=== PATIENT | male | born 2000 | race Caucasian/White ===

== ENCOUNTER 2020-12-18 16:46 | Emergency (ER) | payer BC, SELFPAY ==
[2020-12-18] VITALS (7 sets, daily range): BP systolic 102–146; BP diastolic 50–79; PULSE 60–118; RESP 12–18; TEMP 36.3–37.2; O2SAT 97–100
[2020-12-18 17:09] LABS: Basophils Absolute Auto 0.1 K/mm3 (0.0-0.1); Basophils Percent Auto 0.7 % (0.2-1.2); Eosinophils Absolute Auto 0.5 K/mm3 (0-0.3); Eosinophils Percent Auto 6.6 % (0-4.4); Hematocrit 47.4 % (42.0-52.0); Hemoglobin 16.3 g/dL (14.0-18.0); Immature Granulocyte Absolute 0.01 K/mm3 (0.00-0.031); Immature Granulocyte Percent A 0.1 % (0-0.5); Lymphocytes Absolute Auto 3.28 K/mm3 (0.9-3.2); Lymphocytes Percent Auto 39.9 % (18.3-44.2); Mean Corpuscular HGB Conc 34.4 g/dl (32-36); Mean Corpuscular Volume 92.9 fl (80-100); Mean Platelet Volume 9.6 fl (7.4-10.4); Monocytes Absolute Auto 0.6 K/mm3 (0.1-0.6); Monocytes Percent Auto 7.5 % (2.6-8.5); Neutrophils Absolute Auto 3.7 K/mm3 (1.3-6.7); Neutrophils Percent Auto 45.2 % (45.5-73.1); Platelet Count Result 233 k/mm3 (150-375); Red Cell Distribution Width 12.4 % (11.5-14.5); White Blood Count 8.2 K/mm3 (4.5-10.0)
[2020-12-18 17:12] LABS: Add Urine Microscopic? NO; Appearance Urine Clear (Clear); Bilirubin Urine Negative (Negative); Blood Urine Negative (Negative); Color Urine Yellow (Yellow); Glucose Urine UA Negative (Negative); Ketones Urine Negative (Negative); Leukocyte Esterase Ur Negative LEU/UL (Negative); Nitrate Urine Negative (Negative); Protein Urine Negative (Negative); Specific Grav Ur 1.013 (1.001-1.035); Urobilinogen Urine Negative mg/dL (<2.0)
[2020-12-18 17:22] LABS: Alanine Aminotransferase 19 U/L (4-50); Albumin Level 4.8 g/dL (3.5-5.1); Alkaline Phosphatase 55 U/L (38-126); Anion Gap 12 mmol/L (8-16); Aspartate Amino Transferase 30 U/L (17-59); Bilirubin,Total 0.4 mg/dL (0.2-1.3); Blood Urea Nitrogen 18 mg/dL (9-20); Calcium 9.6 mg/dL (8.4-10.2); Carbon Dioxide 26 mmol/L (22-30); Chloride 101 mmol/L (98-107); Estimated CRCL calculation 124 ml/min; Estimated Glomerular Filt Rate > 60; Glucose 128 mg/dL (65-110); Lipase 139 U/L (23-300); Potassium 3.7 mmol/L (3.4-5.0); Sodium 139 mmol/L (137-145)
--- NOTE | 2020-12-18 19:36 | PC.NURSE ---
Pt reports came in bc he ate some 'bad chicken' earlier today and had to call in to work. reports was still nauseous when he initially arrived in ED, but now feels much better . Denies any other symptoms at present, and reports he doesn't want any further testing or treatment but would like a note for work. skin pwd. a/o x 4.
--- NOTE | 2020-12-18 20:33 | ED.NAVMDI ---
HPI - Nausea/Vomiting/Diarrhea General Chief complaint: Nausea/Vomiting/Diarrhea Stated complaint: nausea, diarrhea, needs note for work Time Seen by Provider: 12/18/20 19:32 Source: patient Mode of arrival: ambulatory Limitations: no limitations History of Present Illness HPI Narrative: 20-year-old male Basically healthy Patient had a considerable amount of profuse and simultaneous vomiting and diarrhea which caused him to miss work today but stopped about 4-5 hours ago This followed the ingestion of some approximately 4-day-old leftover chicken No fever, no abdominal pain, no blood in the stool or the vomit No other ill contacts or risk factors Related Data Allergies Allergy/AdvReac Type Severity Reaction Status Date / Time No Known Allergies Allergy Verified 12/18/20 19:24 Review of Systems Constitutional: Constitutional: Denies chills and Denies fever(s) Cardiovascular: Cardiovascular: Denies chest pain Respiratory: Respiratory: Denies cough and Denies dyspnea Gastrointestinal: Gastrointestinal: Denies abdominal pain, Reports diarrhea, Reports nausea and Reports vomiting Genitourinary: Genitourinary: Denies dysuria [facility] Family History Family History Father Family history of coronary artery disease Mother Family history of malignant neoplasm of breast in first degree relative Other Family history of cardiovascular disease Social History Social History Smoking status: Current every day smoker Alcohol intake: never Exam Const: General: healthy appearing, no acute distress and alert Orientation/consciousness: patient oriented x3 HENMT: Head: normal to inspection Eyes: EOM: EOMs intact bilaterally Resp: Effort & Inspection: normal respiratory effort and not labored GI: GI Palp: Yes Soft to palpation, No Tenderness to palpation present (GI), No Guarding due to palpation present (GI) and No Rebound tenderness present Neuro: General: patient oriented x3 Speech: normal speech Course Vital Signs Vital signs: Vital Signs Temperature 37.2 C 12/18/20 16:48 Pulse Rate 118 H 12/18/20 16:48 Respiratory Rate 16 12/18/20 16:48 Blood Pressure 146/79 H 12/18/20 16:48 Pulse Oximetry 100 12/18/20 16:48 Temperature 36.3 C L 12/18/20 19:22 Pulse Rate 89 12/18/20 19:34 Respiratory Rate 12 12/18/20 19:34 Blood Pressure 115/50 L 12/18/20 19:34 Pulse Oximetry 97 12/18/20 19:34 MDM - Nausea/Vomiting/Diarrhea Lab Data Result diagrams: 12/18/20 16:53 12/18/20 16:53 Labs: Lab Results 12/18/20 12/18/20 12/18/20 Range/Units 16:53 16:53 16:57 WBC 8.2 (4.5-10.0) K/mm3 RBC 5.10 (4.6-6.20) M/mm3 Hgb 16.3 (14.0-18.0) g/dL Hct 47.4 (42.0-52.0) % MCV 92.9 (80-100) fl MCH 32.0 (26-34) pg MCHC 34.4 (32-36) g/dl RDW 12.4 (11.5-14.5) % Plt Count 233 (150-375) k/mm3 MPV 9.6 (7.4-10.4) fl Immature Gran % (Auto) 0.1 (0-0.5) % Neut % (Auto) 45.2 L (45.5-73.1) % Lymph % (Auto) 39.9 (18.3-44.2) % Hardeman % (Auto) 7.5 (2.6-8.5) % Eos % (Auto) 6.6 H (0-4.4) % Baso % (Auto) 0.7 (0.2-1.2) % Lymph # (Auto) 3.28 H (0.9-3.2) K/mm3 Hardeman # (Auto) 0.6 (0.1-0.6) K/mm3 Eos # (Auto) 0.5 H (0-0.3) K/mm3 Baso # (Auto) 0.1 (0.0-0.1) K/mm3 Abs Immat Gran (auto) 0.01 (0.00-0.031) K/mm3 Absolute Neuts (auto) 3.7 (1.3-6.7) K/mm3 Absolute Nucleated RBC 0.0 (0.0-0.012) K/mm3 Nucleated RBC % 0.0 (0.0-0.2) % Sodium 139 (137-145) mmol/L Potassium 3.7 (3.4-5.0) mmol/L Chloride 101 (98-107) mmol/L Carbon Dioxide 26 (22-30) mmol/L Anion Gap 12 (8-16) mmol/L BUN 18 (9-20) mg/dL Creatinine 0.90 (0.7-1.3) mg/dL Estim Creat Clear Calc 124 ml/min Estimated GFR > 60 (59 - ) Glucose 128 H (65-110) mg/dL C
--- NOTE | 2020-12-18 20:34 | PC.NURSE ---
Pt provided with nicolette mist by ED MD Shirley. Pt denies N/V/D or any other symptoms after consuming. ED updated.
== END 2020-12-18 21:02 | disposition home or self-care (01) ==
PROVIDERS: Emergency Medicine; Emergency Provider Emergency Medicine; PCP Family Medicine
DX: K52.9 Noninfective gastroenteritis and colitis, unspecified (principal); F17.200 Nicotine dependence, unspecified, uncomplicated
CPT/HCPCS: 36415; 80053; 81003; 83690; 85025; 99283

== ENCOUNTER 2022-07-23 11:55 | Emergency (ER) | payer BC, SELFPAY ==
--- NOTE | ~2022-07-23 | XR_ITS ---
EXAMINATION: XR hand RT min 3V INDICATION: Right hand pain, initial encounter TECHNIQUE: Three views of the right hand are obtained COMPARISON: None available FINDINGS: There is an acute, traumatic, closed,, mildly comminuted, transverse shaft fracture of the fifth metacarpal. There are 50 degrees of palmar angulation at the fracture site. No additional fract ure is identified. The joint spaces are normal. Soft tissue swelling is seen near the fracture. IMPRESSION: 1. Acute fifth metacarpal fracture with palmar angulation. Reviewed, dictated and finalized at location A.
[2022-07-23 12:02] VITALS: BP 131/84; PULSE 95; RESP 16; TEMP 37.3; O2SAT 99
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
== END 2022-07-23 13:12 | disposition home or self-care (01) ==
PROVIDERS: Emergency Provider Nurse Practitioner Family; PCP Family Medicine
DX: S62.326A Displaced fracture of shaft of fifth metacarpal bone, right hand, initial encounter for closed fracture (principal); Y04.2XXA Assault by strike against or bumped into by another person, initial encounter; F17.200 Nicotine dependence, unspecified, uncomplicated
CPT/HCPCS: 29125; 73130; 99214; A4565; G0463

== ENCOUNTER 2022-08-10 00:58 | Day surgery (SDC) | payer BC, SELFPAY ==
[2022-08-03 15:21] VITALS: BMI 23.7
--- NOTE | 2022-08-03 15:25 | PC.NURSE ---
Report to the Outpatient Waiting Room, entrance under the green pavilion located off [facility], at time 0730 on date 08/10/22. Planned Procedure Time: 0930. Time changes happen often and if your time is changed the preop area will call you the afternoon before. - You and your visitor will be asked to self-screen and do not enter if you have any COVID symptoms. - A mask is optional within the hospital at this time. Patients may have clear liquids (water, carbonated beverages, clear teas, apple juice) until 3 hours prior to surgery with a maximum of 20 ounces. - No food from midnight until time of surgery Take the following medications with a SIP of water the morning of surgery: PAIN PILL IF NEEDED DO NOT STOP ANY OF YOUR OTHER PRESCRIPTION MEDICATIONS PRIOR TO SURGERY EXCEPT THE FOLLOWING Medications to discontinue per physician: N/A Date to take last dose: N/A Please no make-up, nail maltese, hairspray, perfume, deodorant, or body powder the day of surgery. No jewelry (including any body piercings) or valuables the day of surgery, leave them at home. Please take a shower or bath the night before, or the morning of, surgery with an antibacterial soap. Wear comfortable, loose fitting clothing. - Jewelry must be removed prior to entering the operating room. Rings and piercings that are not removed may be cut off. - The hospital will not accept responsibility for valuables. - Please leave all valuables, including medications, at home the day of surgery. If you are going home after surgery, a licensed regional dedicated truck driver must drive you home. - NO public transportation without another adult if you receive anesthesia. - We recommend that an adult stay with you for 24 hours following discharge. - We also recommend that you do not drive, make important decision, drink alcoholic beverages, or take any drugs that were not prescribed by your health care provider for at least 24 hours after your discharge time. Follow any additional instructions given to you from your surgeon. If you or anyone in your household have experienced Covid symptoms in the past week, please notify your surgeon or the nurse liaison at the phone number below for possible testing. Telephone instructions given to BILL MORSE and asked if any additional questions and then verbalized understanding. Patient advised to call surgeon office or pre surgery nurse liaison [phone] if any additional questions.
[2022-08-10] VITALS (8 sets, daily range): BP systolic 110–141; BP diastolic 59–99; PULSE 53–90; RESP 12–20; TEMP 36.1–36.8; O2SAT 98–100
--- NOTE | ~2022-08-10 | XR_ITS ---
EXAMINATION: XR surgery orthopedic DATE: 08/10/2022 12:50 INDICATION: Right fifth metacarpal fracture. TECHNIQUE: 2 intraoperative spot fluoroscopic views of right hand were obtained. I was not present. F luoroscopy exposure time was 261 seconds. COMPARISON: Right hand radiographs 07/23/2022 FINDINGS: There is a transverse fracture of diaphysis of fifth metacarpal. The distal fracture fragme nt demonstrates 2 mm radial displacement and 26 degrees palmar angulation. Fixation is seen with a pi n. IMPRESSION: 1. Transverse fracture of diaphysis of fifth metacarpal status post pinning. Reviewed, dictated and finalized at location A.
--- NOTE | 2022-08-10 07:14 | WPDHPUPDATE1 ---
History and Physical Update Update Date/Time: 08/10/22 07:14 History and Physical has been reviewed, including an updated exam of the patient. There are NO changes in the patient's condition. Risks, benefits, and alternatives have been discussed and questions answered. Patient agrees to proceed with procedure.
[2022-08-10] MEDS: ACETAMINOPHEN 500 MG TABLET 1000 MG PO (07:44)
[2022-08-10] MEDS: LACTATED RINGERS 1,000 ML 30 ML IV CONT ×2 (08:16→12:55)
--- NOTE | 2022-08-10 09:35 | SUR.PREOP ---
0930-pt and mom aware surgeon delays self minimum of 30 minutes.
--- NOTE | 2022-08-10 09:48 | P.PNAN_ITS ---
Anes - Initial Pre Proc Eval Procedure: Operation Date: 08/10/22 09:30 Proposed Procedures p Closed or Possibly Open Reduction Internal Fixation Intramedullary Pin Right Fifth Metacarpal Hand Fracture - Del Glil MD Date/Time: 08/10/22 09:48 Surgeon: Del Gill MD Pre Op Diagnosis: clsd displac 1.6 midshaft fract. Rt 5th metacarpal Patient Data Age: 21 Gender: M Height: 1.88 m Weight: 87.6 kg Last Vital Signs Temp 98.3 F 08/10/22 07:46 Pulse 84 08/10/22 07:46 Resp 20 08/10/22 07:46 BP 130/99 H 08/10/22 07:46 Pulse Ox 100 08/10/22 07:46 O2 Del Method Room Air 08/10/22 07:46 Allergies Allergy/AdvReac Type Severity Reaction Status Date / Time No Known Allergies Allergy Verified 08/10/22 07:42 Home Medications Medication Instructions Recorded Confirmed Type hydrocodone 5 mg-acetaminophen 325 1 tablet PO Q8H PRN pain #12 tabs 07/23/22 08/10/22 Rx mg tablet Patient hx anesthesia problems: none Family hx anesthesia problems: none Results Review: All pre-operative results and documents have been reviewed as part of the pre- operative evaluation. [facility] Family History Family History Father Family history of coronary artery disease Mother Family history of malignant neoplasm of breast in first degree relative Other Family history of cardiovascular disease Social History Social History Years smoked: 4 Smoking status: Current every day smoker Tobacco type: cigarettes Alcohol intake: current Drinks per week: 4 Substance use: current Substance use type: marijuana Living arrangements: with family Gender identity (if verbalized by the patient): Male Spiritual care concerns: No Anes - Eval Final PreProcedure Day of Procedure 08/10/22 09:48 Patient weight: normal Heart: regular rate and rhythm Lungs: clear to auscultation Airway: Mallampati scale class II Neurological: alert and oriented Last oral intake: >/= 8 hours ASA classification: II Emergent: no Anesthetic plan: proceed Anesthesia type and monitoring: general LMA and standard monitoring Results Review: All pre-operative results and documents have been reviewed as part of the pre- operative evaluation. Informed Consent: The patient's anesthetic plan and its attendant risks and benefits were discussed with the patient/family/POA. Questions were solicited and answers provided to the satisfaction of the patient/family/POA.
[2022-08-10] MEDS: ceFAZolin 2 GM/D5W 50 ML 2 GM/50 ML BAG IVPB (11:14)
[2022-08-10] MEDS: LIDO 1%/EPINEPHRINE 1:100,000 20 ML VIAL 4 ML INFILTRATE (11:44)
--- NOTE | 2022-08-10 12:56 | W.PM.PROC2 ---
Procedure Note - Detailed Date of Procedure 08/10/22 Pre-op Diagnosis clsd displac 1.6 midshaft fract. Rt 5th metacarpal Post-op Diagnosis Other (Closed displaced fracture of the right 5th metacarpal shaft) Procedure Performed Closed reduction of right 5th metacarpal with intramedullary doe fixation Surgeon Del Gill MD Location And Measurement Technician [facility] Anesthesia General Indications Patient needs to keep working at his job Description of Procedure The right 5th digit was marked at the tip of the finger as the patient waited in the holding area with his bandage on. He was taken to the operating room and placed supine on the operating table. The dressing was removed. The patient was given IV sedation with LMA believe the right upper extremity was prepped and draped in usual fashion. The access site was identified using a 25 gauge needle and the C-arm. This area was infiltrated with 1% lidocaine with epinephrine along with the actual fracture site. The extremity was exsanguinated and the tourniquet inflated to 250 mmHg. A 1 in incision was made over the base of the 5th metacarpal blunt dissection revealed the extensor comitantes tendon. An access site was chosen near the base of the 5th metacarpal. The 2 mm hole was drilled in the cortex at an angle of 45?. A 0.062 in C-wire was chosen for fixation. The sharp tip was cut from 1 end. The distal 1-1/2 cm were bent about 20? . About 4 cm distal to the anticipated intramedullary l length of the pin, a 90 degree bend was made. The blunt end of the pin was inserted into the cortical fenestration. This was advanced distally with pushing twisting and tapping with a mallet the fracture was reduced under imaging. The pin was advanced into the middle of the head of the metacarpal, at that point despite rotation we were not able to advance it further. This seemed to be adequate. Compression was applied to the fracture and good reduction was obtained. The proximal end the pin was cut short and laid into the soft tissue to prevent trauma to the extensor tendons or the skin. The skin was closed with interrupted 5 0 nylon. The tourniquet was released. Soft bulky bandage was applied. He was discharged from the operating room stable condition. He had been given 2 g Ancef preop. The tourniquet time was 52 minutes. He is discharged home without prescriptions. Estimated Blood Loss 0 Tourniquet Time 52 Drains No Packing No Pathology None sent Complications No immediate complications Condition Stable Disposition Same day
[2022-08-10] MEDS: oxyCODONE HCL (*CRX) 5 MG TAB IR PO (13:51)
[2022-08-10] MEDS: ONDANSETRON INJ 4 MG/2 ML VIAL IV PUSH (13:51)
== END 2022-08-10 15:15 | disposition home or self-care (01) ==
PROVIDERS: PCP Family Medicine; Visit Provider Plastic Surgery
PROC: (CPT 26615; principal; 2022-08-10 09:30)
DX: S62.326A Displaced fracture of shaft of fifth metacarpal bone, right hand, initial encounter for closed fracture (principal); Y04.2XXA Assault by strike against or bumped into by another person, initial encounter
CPT/HCPCS: 26608; 99199; A9270; C1713; J0690; J1100; J1170; J2250; J2405; J2704; J3010; J7120

== ENCOUNTER 2022-09-28 01:13 | Day surgery (SDC) | payer BC, SELFPAY ==
--- NOTE | 2022-09-21 15:11 | PC.NURSE ---
Report to the Outpatient Waiting Room, entrance under the green pavilion located off [facility], at time 0600_ on date _09/28/22_. Planned Procedure Time: _0730__. Time changes happen often and if your time is changed the preop area will call you the afternoon before. - You and your visitor will be asked to self-screen and do not enter if you have any COVID symptoms. - A mask is optional within the hospital at this time. Patients may have clear liquids (water, carbonated beverages, clear teas, apple juice) until 3 hours prior to surgery with a maximum of 20 ounces. - No food from midnight until time of surgery - Infants may have breast milk until 4 hours before surgery, infant formula 6 hours prior to surgery. - Children will be allowed to drink immediately following surgery. If applicable, please bring a bottle or sippy cup to assist with drinking. Juice, water, soda, and popsicles are readily available. For infants on formula, please bring formula the day of surgery. Pacifiers are allowed. Take the following medications with a SIP of water the morning of surgery: PAIN MEDICATION IF NEEDED DO NOT STOP ANY OF YOUR OTHER PRESCRIPTION MEDICATIONS PRIOR TO SURGERY ?EXCEPT THE FOLLOWING Medications to discontinue per physician NONE Date to take last dose Please no make-up, nail mauritian, hairspray, perfume, deodorant, or body powder the day of surgery. No jewelry (including any body piercings) or valuables the day of surgery, leave them at home. Please take a shower or bath the night before, or the morning of, surgery with an antibacterial soap. Wear comfortable, loose fitting clothing. Children are encouraged to wear pajamas. - Jewelry must be removed prior to entering the operating room. Rings and piercings that are not removed may be cut off. - The hospital will not accept responsibility for valuables. - Please leave all valuables, including medications, at home the day of surgery. If you are going home after surgery, a licensed tow driver must drive you home. - NO public transportation without another adult if you receive anesthesia. - We recommend that an adult stay with you for 24 hours following discharge. - We also recommend that you do not drive, make important decision, drink alcoholic beverages, or take any drugs that were not prescribed by your health care provider for at least 24 hours after your discharge time. For Pediatric surgeries, we recommend two adults accompany the child home. Follow any additional instructions given to you from your surgeon. If you or anyone in your household have experienced Covid symptoms in the past week, please notify your surgeon or the nurse liaison at the phone number below for possible testing. Telephone instructions given to _PATIENT_and asked if any additional questions and then verbalized understanding. Patient advised to call surgeon office or pre surgery nurse liaison [phone] if any additional questions.
--- NOTE | ~2022-09-28 | XR_ITS ---
EXAMINATION: XR surgery orthopedic DATE: 09/28/2022 08:02 INDICATION: Removal of fixation pin of the right fifth metacarpal TECHNIQUE: 2 fluoroscopic images of the right hand centered at the metacarpals were obtained during p rocedure performed by Dr. Gill. Radiologist was not present for the imaging or procedure. The amount of fluoroscopy time used during this procedure was 0.4 minutes. COMPARISON: 08/10/2022 FINDINGS: No change in a proximal to distal, axially directed fixation wire seen spanning a mid diaphyseal frac ture of the right fifth metacarpal. There are few tiny metallic densities in the soft tissues dorsal/ ulnar to the base of the fifth metacarpal. The fixation pin has been removed on the subsequent image. There is calcification about the fracture but still is some residual clearly discernible linear luce ncy along the fracture plane. The fracture is healing in near anatomic alignment on the dorsal palmar projection. No other fractures identified. Joint spaces are normal. IMPRESSION: 1. Removal of a fixation pin from a healing metaphyseal fracture of the right fifth metacarpal which remains in near-anatomic alignment. Reviewed, dictated and finalized at location A. IMPRESSION: 1. Removal of a fixation pin from a healing metaphyseal fracture of the right f ifth metacarpal which remains in near-anatomic alignment.
[2022-09-28 06:45] VITALS: BMI 25.9
[2022-09-28 07:00] VITALS: BP 122/74; PULSE 73; RESP 18; TEMP 36; O2SAT 100
[2022-09-28] MEDS: LACTATED RINGERS 1,000 ML 30 ML IV CONT (07:00)
[2022-09-28] MEDS: ACETAMINOPHEN 500 MG TABLET 1000 MG PO (07:00)
--- NOTE | 2022-09-28 07:07 | P.PNAN_ITS ---
Anes - Initial Pre Proc Eval Procedure: Operation Date: 09/28/22 07:30 Proposed Procedures p Removal of Fixation Pin Right Fifth Metacarpal - Del Gill MD Date/Time: 09/28/22 07:07 Surgeon: Del Gill MD Pre Op Diagnosis: Right Fifth Status Post ORIF Patient Data Age: 21 Gender: M Height: Weight: Allergies Allergy/AdvReac Type Severity Reaction Status Date / Time No Known Allergies Allergy Verified 08/24/22 08:05 Home Medications Medication Instructions Recorded Confirmed Type hydrocodone 5 mg-acetaminophen 325 1 tablet PO Q8H PRN pain #12 tabs 07/23/22 09/21/22 Rx mg tablet Patient hx anesthesia problems: none Family hx anesthesia problems: none Results Review: All pre-operative results and documents have been reviewed as part of the pre-operative evaluation. COUNTS INCLUDE 234 BEDS AT THE [facility] Family History Family History Father Family history of coronary artery disease Mother Family history of malignant neoplasm of breast in first degree relative Other Family history of cardiovascular disease Social History Social History (Updated 08/24/22 @ 08:43 by Jesus Herrera PA-C) Years smoked: 4 Tobacco type: cigarettes and e-cigarettes/vaping Additional smoking assessment comments: DAILY VAP USE Alcohol intake: current Drinks per week: 4 Substance use: current Substance use type: marijuana Other substance usage details: DAILY Living arrangements: with family Gender identity (if verbalized by the patient): Male Spiritual care concerns: No Anes - Eval Final PreProcedure Day of Procedure 09/28/22 07:07 Patient weight: normal Heart: regular rate and rhythm Lungs: clear to auscultation Airway: Mallampati scale class II Neurological: alert and oriented Last oral intake: >/= 8 hours ASA classification: II Emergent: no Anesthetic plan: proceed Anesthesia type and monitoring: general GIVS and standard monitoring Results Review: All pre-operative results and documents have been reviewed as part of the pre- operative evaluation. Informed Consent: The patient's anesthetic plan and its attendant risks and benefits were discussed with the patient/family/POA. Questions were solicited and answers provided to the satisfaction of the patient/family/POA.
--- NOTE | 2022-09-28 07:16 | WPDHPUPDATE1 ---
History and Physical Update Update Date/Time: 09/28/22 07:16 History and Physical has been reviewed, including an updated exam of the patient. There are NO changes in the patient's condition. Risks, benefits, and alternatives have been discussed and questions answered. Patient agrees to proceed with procedure.
[2022-09-28] MEDS: ceFAZolin 2 GM/D5W 50 ML 2 GM/50 ML BAG IVPB (07:27)
[2022-09-28] MEDS: LIDO 1%/EPINEPHRINE 1:100,000 50 ML VIAL INFILTRATE (07:53)
[2022-09-28 08:05] VITALS: BP 107/61; PULSE 76; RESP 16; O2SAT 100
--- NOTE | 2022-09-28 08:14 | P.OP_ITS ---
Procedure Note - Detailed Date of Procedure 09/28/22 Pre-op Diagnosis Right Fifth Status Post ORIF Post-op Diagnosis Other (Status post closed reduction and internal fixation of the right 5th metacarpal fracture) Procedure Performed Planned removal of C-wire fixation device of the right 5th metacarpal Surgeon Del Gill MD Computational Theory Scientist Sneha Anesthesia MAC Indications 6 weeks post closed reduction and internal fixation with full use of the right hand. Description of Procedure The prior surgical site on the right 5th metacarpal was marked in the holding area with patient's consent. He was taken to the operating room where he was placed supine on the operating table. He was given IV sedation. The right upper extremity was prepped and draped in usual fashion. A time-out was held and confirmed. The pin site was identified with C-arm the fill imaging. The site was locally infiltrated with 1% lidocaine with epinephrine.. Extremity was exsanguinated tourniquet inflated to 250 mmHg. The incision was made at the marked site. Sharp and blunt dissection at the proximal end of the wire exposed the end. Pin was stable. It did not impinge on the extensor tendon. The pin was extracted without difficulty with a large needle bassett. The metacarpal was manipulated under fluoro imaging. It is callused and appears stable. The skin was closed with a running 5 0 nylon suture. A small soft bandage was applied. The patient was discharged from the operating room stable condition. He has a prescription for hydrocodone 5/325 number 4. He had been given 2 g Ancef preop. Estimated Blood Loss 0 Drains No Packing No Pathology None sent Complications No immediate complications Condition Stable Disposition Same day
[2022-09-28 08:35] VITALS: BP 112/68; PULSE 63; RESP 16
== END 2022-09-28 08:53 | disposition home or self-care (01) ==
PROVIDERS: PCP Family Medicine; Visit Provider Plastic Surgery
PROC: (CPT 20694; principal; 2022-09-28 07:30)
DX: Z47.2 Encounter for removal of internal fixation device (principal); S62.326D Displaced fracture of shaft of fifth metacarpal bone, right hand, subsequent encounter for fracture with routine healing; Y04.0XXD Assault by unarmed brawl or fight, subsequent encounter; F17.290 Nicotine dependence, other tobacco product, uncomplicated; F12.90 Cannabis use, unspecified, uncomplicated
CPT/HCPCS: 20680; 99199; A9270; J0690; J1100; J1170; J2250; J2405; J2704; J3010; J7120

== ENCOUNTER 2023-04-24 17:20 | Emergency (ER) | payer BC, SELFPAY ==
--- NOTE | ~2023-04-24 | XR_ITS ---
EXAMINATION: XR lumbar spine 2-3V DATE: 04/24/2023 20:07 INDICATION: Back pain. Fall. TECHNIQUE: 3 views of lumbar spine were obtained. COMPARISON: None. FINDINGS: Bone alignment is normal. There is mild chronic anterior wedging of T12 vertebral body, lik jose physiologic. Intervertebral disc heights are normal. The facet joints are unremarkable. IMPRESSION: 1. No fracture. Reviewed, dictated and finalized at location E. OSITION FLOOR LAYER IMPRESSION: 1. No fracture.
--- NOTE | ~2023-04-24 | CT_ITS ---
EXAMINATION: CT cervical spine wo con DATE: 04/24/2023 20:13 INDICATION: Head injury. TECHNIQUE: Computed tomography (CT) of the cervical spine was performed without intravenous contrast. Automated exposure control and iterative reconstruction technique were employed. The dose-length pro duct was 541.61 mGy-cm. COMPARISON: None FINDINGS: There are blebs at right lung apex. Bone alignment is normal. Vertebral body heights and in tervertebral disc heights are normal. At C7-T1, there is moderate bilateral facet joint osteoarthriti s. No neural foraminal stenosis. No central canal stenosis. IMPRESSION: 1. No fracture. Reviewed, dictated and finalized at location E. NESS SOLUTIONS DIRECTOR IMPRESSION: 1. No fracture.
--- NOTE | ~2023-04-24 | CT_ITS ---
EXAMINATION: CT brain wo con DATE: 04/24/2023 20:13 INDICATION: Head injury. TECHNIQUE: Computed tomography (CT) of the head was performed without intravenous contrast. The mA wa s adjusted according to patient size. Iterative reconstruction technique was employed. The dose-lengt h product was 605.33 mGy-cm. COMPARISON: None FINDINGS: There is no intracranial hemorrhage, acute infarction, or abnormal intracranial mass lesion . The ventricles are normal in size. The paranasal sinuses are clear. The mastoid air cells are kevin l. The orbits are normal. IMPRESSION: 1. Normal brain. Reviewed, dictated and finalized at location E. ER OPERATOR IMPRESSION: 1. Normal brain.
[2023-04-24 17:22] VITALS: BP 145/89; PULSE 100; RESP 18; TEMP 36.6; O2SAT 100
[2023-04-24 20:00] VITALS: BP 114/78; PULSE 76; RESP 15; O2SAT 99
--- NOTE | 2023-04-24 20:10 | ED.FALL ---
HPI - Fall General Chief Complaint: Fall Stated Complaint: fall/hi Time Seen by Provider: 04/24/23 19:15 22 old male presents to the emergency department for evaluation for headache after a head injury. Patient states approximately 10:00 a.m. this morning he was walking slipped on ice fell back and struck his head. Patient denies any loss of consciousness but states that he did have some brief confusion some blurred vision and does have a persistent headache. Patient states all vision changes have improved and patient does not feel confused. Patient's partner states he is currently at his normal baseline and patient is not appear to be altered in any way. Patient denies any associated numbness or weakness. Related Data Allergies Allergy/AdvReac Type Severity Reaction Status Date / Time No Known Allergies Allergy Verified 04/24/23 17:27 Review of Systems Review of Systems: All systems reviewed & are unremarkable except as noted in HPI and below PMFSH Family History Family History Father Family history of coronary artery disease Mother Family history of malignant neoplasm of breast in first degree relative Other Family history of cardiovascular disease Social History Social History (Updated 08/24/22 @ 08:43 by Jesus Herrera PA-C) Years smoked: 4 Tobacco type: cigarettes and e-cigarettes/vaping Additional smoking assessment comments: DAILY VAP USE Alcohol intake: current Drinks per week: 4 Substance use: current Substance use type: marijuana Other substance usage details: DAILY Living arrangements: with family Gender identity (if verbalized by the patient): Male Spiritual care concerns: No Exam Narrative: APPEARANCE: Well appearing, no pain, no distress, well-nourished. HEAD: normocephalic, atraumatic. EYES: PERRLA/EOMI, conjunctivae clear. NOSE: Normal no drainage EARS:TMS clear with good light reflex. THROAT: Pharynx clear, no exudate. NECK: Supple. No adenopathy, no masses. RESPIRATORY: Airway patent, respirations nonlabored. Clear to auscultation bilaterally, no rales, rhonchi, wheezing. CARDIOVASCULAR: Regular rate and rhythm without murmurs rubs or gallops. ABDOMINAL: Soft, nontender, nondistended, normal bowel sounds MUSCULOSKELETAL: Moves all extremities. Strength/ROM intact, No edema, No calf tenderness. NEURO: Alert. Cranial nerves II through XII intact. Grossly intact SKIN: Warm, dry. Normal Color Course Course Emergency Course: [age] old male presenting ED for evaluation after a head injury. Patient had negative cervical and lumbar imaging along with a negative head CT. All questions concerns were addressed patient was comfortable plan for discharge and his follow-up. Patient was educated on reasons to return to the emergency department. Vital Signs Vital signs: Vital Signs Temperature 97.8 F 04/24/23 17:22 Pulse Rate 100 04/24/23 17:22 Respiratory Rate 18 04/24/23 17:22 Blood Pressure 145/89 H 04/24/23 17:22 Pulse Oximetry 100 04/24/23 17:22 Oxygen Delivery Room Air 04/24/23 17:22 Temperature 97.8 F 04/24/23 17:22 Pulse Rate 76 04/24/23 20:00 Respiratory Rate 15 04/24/23 20:00 Blood Pressure 114/78 04/24/23 20:00 Pulse Oximetry 99 04/24/23 20:00 Oxygen Delivery Room Air 04/24/23 17:22 MDM - Fall Imaging Data Radiologist's impression: Impressions Lumbar Spine X-Ray 04/24/23 20:09 IMPRESSION: 1. No fracture. Head CT 04/24/23 20:13 IMPRESSION: 1. Normal brain. Cervical Spine CT 04/24/23 20:15 IMPRESSION: 1. No fracture. Discharge Plan Discharge Clinical Impression: Head injury, Acute neck pain, Low back pain Patient Disposition: Home, Self-Care Condition: Stable Instructions: Antibiotic Form, Concussion (ED), Head Injury (ED) Additional Instructions: Tylenol and ibuprofen for pain control.
== END 2023-04-24 20:40 | disposition home or self-care (01) ==
PROVIDERS: Emergency Provider Emergency Medicine; PCP Family Medicine
DX: S09.90XA Unspecified injury of head, initial encounter (principal); S39.92XA Unspecified injury of lower back, initial encounter; S19.9XXA Unspecified injury of neck, initial encounter; F17.290 Nicotine dependence, other tobacco product, uncomplicated; W00.0XXA Fall on same level due to ice and snow, initial encounter
CPT/HCPCS: 70450; 72100; 72125; 99284

== ENCOUNTER 2023-07-24 09:32 | Emergency (ER) | payer BC, SELFPAY ==
--- NOTE | 2023-07-24 09:38 | ED.URI ---
HPI - URI/Sore Throat General Chief Complaint: Upper Respiratory Infection Stated Complaint: SINUS PRESSURE/COUGH/SNEEZING Time Seen by Provider: 07/24/23 10:02 Source: patient and RN notes reviewed Mode of arrival: ambulatory Limitations: no limitations History of Present Illness HPI Narrative: 22-year-old male presents with concern for 2 day history of your pain, sore throat, sinus congestion, body aches. Reports he state over work today. He has not taken any [id number] medications for his symptoms. MD elicited complaint: sore throat Related Data Allergies Allergy/AdvReac Type Severity Reaction Status Date / Time No Known Allergies Allergy Verified 07/24/23 09:44 Review of Systems Review of Systems: CONSTITUTIONAL: Reports malaise, fatigue. Denies chills, sweats, or fever. EYES: Denies visual changes, redness, or discharge. ENT: Reports rhinorrhea, congestion, otalgia and sore throat. CARDIOVASCULAR: Denies chest pain, palpitations, or edema. RESPIRATORY: Reports cough. Denies dyspnea. GASTROINTESTINAL: Denies abdominal pain, nausea, vomiting, diarrhea SKIN: Denies rash or itching. MUSCULOSKELETAL: Reports myalgia. NEUROLOGIC: Denies headache. All systems reviewed & are unremarkable except as noted in HPI and below PMFSH Family History Family History Father Family history of coronary artery disease Mother Family history of malignant neoplasm of breast in first degree relative Other Family history of cardiovascular disease Social History Social History (Updated 08/24/22 @ 08:43 by Jesus Herrera PA-C) Years smoked: 4 Tobacco type: cigarettes and e-cigarettes/vaping Additional smoking assessment comments: DAILY VAP USE Alcohol intake: current Drinks per week: 4 Substance use: current Substance use type: marijuana Other substance usage details: DAILY Living arrangements: with family Gender identity (if verbalized by the patient): Male Spiritual care concerns: No Comments At time of signature, agree with nursing past medical, surgical, social and family history. There is no relevant family history pertinent to the presenting complaint Exam Narrative: GENERAL: Nontoxic-appearing, well-nourished, and in no acute distress. HEAD: Normocephalic EYES: PERRLA, conjunctivae clear ENT: Nares clear, turbinates edematous and erythematous. Mucous membranes moist. TM pearly barragan with dull light reflex bilaterally; no tragal tenderness. Oropharynx not erythematous without lesions. Tonsils not enlarged and without exudate, no drooling, no hoarseness, no trismus, uvula midline. NECK: Supple. No lymphadenopathy CHEST: Clear to auscultation, breath sounds equal. No wheezing, rhonchi, rales, or stridor. No respiratory distress, speaks in full sentences. HEART: Regular rate and rhythm. No murmur heard. SKIN: Warm, dry, no rash. NEURO: Alert and oriented x3. PSYCH: Normal mood and affect Course Course Emergency Course: Patient is aware of diagnosis, understands and agrees to treatment plan. Anticipatory guidance given. Patient agrees to follow-up as directed and is aware of reasons to seek care at the emergency department. Portions of this record may have been created with voice recognition software Level of Care: Express Care Visit Vital Signs Vital signs: Reviewed. MDM - URI/Sore Throat MDM Narrative Medical decision making narrative: Differential diagnosis considered: [place] virus, strep pharyngitis, allergic rhinitis, upper respiratory tract infection, sinusitis, rhinosinusitis, nasopharyngitis. viral pharyngitis, otitis media, otitis externa, pneumonia, bronchitis, viral cough syndrome, viral syndrome, and influenza. Exam findings show no acute concerns or changes; patient is non-toxic appearing and is in no distress. Patient is appropriate for outpatient treatment and follow-up. Lab Data Attestation: I reviewed the pa
[2023-07-24 09:47] VITALS: BP 122/69; PULSE 96; RESP 16; TEMP 37; O2SAT 100
== END 2023-07-24 10:14 | disposition home or self-care (01) ==
PROVIDERS: Emergency Provider Nurse Practitioner; PCP Family Medicine
DX: J06.9 Acute upper respiratory infection, unspecified (principal); Z20.822 Contact with and (suspected) exposure to COVID-19; F17.290 Nicotine dependence, other tobacco product, uncomplicated; F12.90 Cannabis use, unspecified, uncomplicated
CPT/HCPCS: 87081; 87426; 87804; 87880; 99213; G0463